=== PATIENT | female | born 1960 | race Caucasian/White ===

== ENCOUNTER 2021-03-31 16:09 | Outpatient (REF) | payer OTHER, SELFPAY ==
[2021-04-01 20:07] LABS: Rheumatoid Factor <8.6 IU/mL (<12.0)
[2021-04-02 09:56] LABS: Cyclic Citrullinated Peptide <2.5 U/mL (<5.0)
[2021-04-02 13:56] LABS: ANA Interpretation Negative (Negative)
[2021-04-03 17:07] LABS: dsDNA Ab, IgG <12.3 IU/mL (<30.0)
== END 2021-03-31 16:10 | disposition home or self-care (01) ==
LOC: LBN 16:09
PROVIDERS: PCP Family Medicine; Visit Provider Student in an Organized Health Care Education/Training Program
DX: J84.9 Interstitial pulmonary disease, unspecified (principal)
CPT/HCPCS: 86200; 86038; 86225; 86431

== ENCOUNTER 2021-06-30 17:51 | Outpatient (REF) | payer OTHER, SELFPAY ==
[2021-06-30 20:07] LABS: Abs Immature Grans 0.01 10^3/uL (0.0-0.06); Absolute Basophil Count 0.04 10^3/uL (0.0-0.2); Absolute Eosinophil Count 0.05 10^3/uL (0.0-0.7); Absolute Lymphocyte Count 1.74 10^3/uL (1.2-3.4); Absolute Monocyte Count 0.43 10^3/uL (0.1-0.8); Absolute Neutrophil Count 3.13 10^3/uL (1.2-6.7); Basophils % 0.7; Eosinophils % 0.9; HCT 42.1 % (36.0-46.0); HGB 13.2 g/dL (11.2-15.7); Immature Grans % 0.2; Lymphocytes % 32.2; MCH 26.8 pg (27.0-33.0); MCHC 31.4 % (32.0-36.0); MCV 85.4 fL (80-95); MPV 11.6 fL (8.0-11.0); Nucleated RBC 0 %; Platelet Count 223 10^3/uL (130-400); RBC 4.93 10^6/uL (3.93-5.22); RDW 13.8 % (11.7-14.6); RDW-SD 43.3 fL
[2021-06-30 21:53] LABS: Abs Immature Grans 0.02 10^3/uL (0.0-0.06); Absolute Basophil Count 0.03 10^3/uL (0.0-0.2); Absolute Eosinophil Count 0.05 10^3/uL (0.0-0.7); Absolute Lymphocyte Count 1.72 10^3/uL (1.2-3.4); Absolute Monocyte Count 0.37 10^3/uL (0.1-0.8); Basophils % 0.6; HGB 13.3 g/dL (11.2-15.7); Immature Grans % 0.4; Lymphocytes % 33.1; MCH 27.1 pg (27.0-33.0); MCHC 31.7 % (32.0-36.0); MCV 85.7 fL (80-95); MPV 11.8 fL (8.0-11.0); Monocytes % 7.1; Neutrophils % 57.8; Nucleated RBC 0 %; Platelet Count 226 10^3/uL (130-400); RDW 13.9 % (11.7-14.6); RDW-SD 43.4 fL; WBC 5.19 10^3/uL (4.4-10.8)
== END 2021-06-30 17:52 | disposition home or self-care (01) ==
LOC: LBN 17:51
PROVIDERS: PCP Family Medicine; Visit Provider Student in an Organized Health Care Education/Training Program
DX: J84.9 Interstitial pulmonary disease, unspecified (principal)
CPT/HCPCS: 88185; 85025; 88184; 88189